=== PATIENT | male | born 1950 | race Caucasian/White ===

== ENCOUNTER 2016-12-30 08:39 | Outpatient (CLI) | payer MEDICARE, MEDICAID ==
[2015-07-28 12:48] VITALS: BP 130/79
== END 2016-12-30 08:40 ==
LOC: POD 08:39
PROVIDERS: ATTEND Podiatrist Public Medicine
DX: E11.9 Type 2 diabetes mellitus without complications (principal); L84 Corns and callosities; L60.0 Ingrowing nail; M79.674 Pain in right toe(s); M79.675 Pain in left toe(s)
CPT/HCPCS: 11721; G0463

== ENCOUNTER 2017-02-18 19:46 | Emergency (ER) | payer MEDICARE, OTHER ==
--- NOTE | 2017-02-18 20:04 | ED Physician Documentation ---
General Adult - HISTORIAN Historian: patient - HPI Stated Complaint: constipation Chief Complaint: General Adult Additional Information: Moving more slowly this am, decreased appetite, abdomen may be a little distended. Did not eat lunch at all. Small bowel movement this afternoon. Walking bent over. 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 Lives in senior living. - ROS CONST: no problems - PAST HX Past History: other (NIDDM, developmental delay) Allergies/Adverse Reactions: Allergies Allergy/AdvReac Type Severity Reaction Status Date / Time No Known Drug Allergies Allergy Unverified 02/18/17 20:45 - SOCIAL HX Smoking History: non-smoker - FAMILY HX Family History: No (no significant) - VITAL SIGNS Vital Signs: Vital Signs Temp Pulse Resp BP Pulse Ox 130/79 08/30/15 11:17 - REVIEWED ASSESSMENTS Nursing Assessment Reviewed: Yes Vitals Reviewed: Yes Progress - Progress Progress: CT abdomen and pelvis without contrast Date of study: February 18, 2017. CLINICAL HISTORY: hx of constipation pt non verbal and unable to give complaints (Hx) / OBSTRUCTION (DICOM Hx) TECHNIQUE: 5 mm contiguous axial images of the abdomen and pelvis non contrast. FINDINGS: The lung bases are clear. Abdomen: The liver and spleen are normal in appearance. The gallbladder is somewhat distended. There is fatty replacement of the head and uncinate process of the pancreas. The kidneys are normal in size and surface contour. There is no evidence of renal or ureteral calculi identified. No hydronephrosis or perinephric stranding is evident. The aorta is normal in caliber. The proximal small bowel is dilated with multiple air-fluid levels. The distal small bowel is nondilated. This may represent ileus or early small bowel obstruction. There is no evidence of free air or free fluid. Pelvis: The colon is generally filled with stool and occasional air fluid levels. The distal ureters and bladder are normal in appearance. There is no evidence of distal ureteral or intravesicular calculi. The appendix is normal. There is no evidence of free air or free fluid. The sigmoid colon and rectum are filled with stool. The remaining pelvic structures are within normal limits and the bones of the pelvis are intact. Multilevel degenerative lumbar spondylosis as noted. There is L3/L4, L4/L5 and L5/S1 disc bulging. IMPRESSION: Dilated proximal small bowel with multiple air-fluid levels that may represent ileus or early small bowel obstruction. Colon Generally filled with stool and occasional colonic air-fluid levels. Somewhat distended gallbladder. Electronically signed on Feb 18, 2017 9:04:27 PM CDT by: Vonda Mcmullen Spoke with Dr. Morse, [facility]. Pt accepted for transfer to ER. ED Results Lab/Radiology - Orders Orders: ED Orders Category Date Time Status Place Saline Lock/IV Now Care 02/18/17 19:[address] ABD & PELVIS W/O CON Stat Exams 02/18/17 Ordered CBC/PLATELET/DIFF Routine Lab 02/18/17 Ordered CMP Routine Lab 02/18/17 Ordered URINALYSIS Routine Lab 02/18/17 Ordered General Adult Physical Exam - PHYSICAL EXAM GENERAL APPEARANCE: Able to say he feels "all right." "No," he doesn't hurt. EENT: eye inspection normal, other (won't open mouth for further exam. Sits with lips parted, tongue slightl;y protruding. ) NECK: supple, other (obese) RESPIRATORY: no resp distress, breath sounds normal CVS: reg rate & rhythm, heart sounds normal ABDOMEN: soft, normal bowel sounds RECTAL: deferred SKIN: warm/dry, normal color EXTREMITIES: non-tender, no evidence of injury NEURO: CN's nml as tested, motor nml, sensation nml Discharge Clincal Impression: Ileus, Small bowel obstruction Condition: Fair Disposition: 02 XFER [id number]-TRM HOSP Decision to Admit: NO Decision Time: 21:38
[2017-02-18 20:48] LABS: eGFR (African) > 60; eGFR (Non-African) > 60
[2017-02-18 20:57] LABS: BASOPHILS % 0.2 (0.0-1.5); EOSINOPHILS % 0.8 % (0.0-6.8); LYMPHOCYTES # 0.5 # k/uL (0.6-4.0); MEAN CORPUSCULAR HEMOGLOBIN 30.5 pg (28.0-34.0); MONOCYTES # 0.4 # k/uL (0.0-0.9); MONOCYTES % 4.4 % (0.0-11.0); NEUTROPHILS # 7.9 # k/uL (1.4-7.7)
[2017-02-18 22:16] VITALS: BP 124/71
--- NOTE | 2017-02-19 10:33 | Diagnostic Imaging Report ---
DAIN LAWTON - MAGO [facility] [id number] [facility] [address] [place], [place]. [address] Report Submission Date: Feb 18, 2017 9:04:27 PM CDT Patient Study Name: NATHAN PHAM Date: Feb 18, 2017 8:39:24 PM CDT Modality Type: CT\SR Gender: M Description: CT ABD & PELVIS W/O CO : 54 Institution: [facility] Physician: DAIN LAWTON - MAGO CT abdomen and pelvis without contrast Date of study: February 18, 2017. CLINICAL HISTORY: hx of constipation pt non verbal and unable to give complaints (Hx) / OBSTRUCTION (DICOM Hx) TECHNIQUE: 5 mm contiguous axial images of the abdomen and pelvis non contrast. FINDINGS: The lung bases are clear. Abdomen: The liver and spleen are normal in appearance. The gallbladder is somewhat distended. There is fatty replacement of the head and uncinate process of the pancreas. The kidneys are normal in size and surface contour. There is no evidence of renal or ureteral calculi identified. No hydronephrosis or perinephric stranding is evident. The aorta is normal in caliber. The proximal small bowel is dilated with multiple air-fluid levels. The distal small bowel is nondilated. This may represent ileus or early small bowel obstruction. There is no evidence of free air or free fluid. Pelvis: The colon is generally filled with stool and occasional air fluid levels. The distal ureters and bladder are normal in appearance. There is no evidence of distal ureteral or intravesicular calculi. The appendix is normal. There is no evidence of free air or free fluid. The sigmoid colon and rectum are filled with stool. The remaining pelvic structures are within normal limits and the bones of the pelvis are intact. Multilevel degenerative lumbar spondylosis as noted. There is L3/L4, L4/L5 and L5/S1 disc bulging. IMPRESSION: Dilated proximal small bowel with multiple air-fluid levels that may represent ileus or early small bowel obstruction. Colon Generally filled with stool and occasional colonic air-fluid levels. Somewhat distended gallbladder. Electronically signed on Feb 18, 2017 9:04:27 PM CDT by: Vonda DREW
== END 2017-02-18 22:00 | disposition short-term general hospital (02) ==
LOC: ED 19:46
DX: K56.69 Other intestinal obstruction (principal)
CPT/HCPCS: 74176; 80053; 82150; 85025; 99283

== ENCOUNTER 2017-05-05 08:38 | Outpatient (CLI) | payer MEDICARE, OTHER | END 2017-05-05 08:40 | LOC: POD 08:38 | PROVIDERS: ATTEND Podiatrist Public Medicine | DX: B35.1 Tinea unguium (principal); E11.9 Type 2 diabetes mellitus without complications; L84 Corns and callosities; L60.0 Ingrowing nail; M79.675 Pain in left toe(s); M79.674 Pain in right toe(s) | CPT/HCPCS: 11721; G0463 ==

== ENCOUNTER 2017-08-04 08:37 | Outpatient (CLI) | payer MEDICARE, OTHER | END 2017-08-04 08:40 | LOC: POD 08:37 | PROVIDERS: ATTEND Podiatrist Public Medicine | DX: B35.1 Tinea unguium (principal); M79.674 Pain in right toe(s); M79.675 Pain in left toe(s); L60.0 Ingrowing nail; E11.9 Type 2 diabetes mellitus without complications; L84 Corns and callosities | CPT/HCPCS: 11721; G0463 ==

== ENCOUNTER 2017-09-29 10:04 | Outpatient (CLI) | payer MEDICARE, OTHER ==
[2017-09-29 10:22] LABS: BASOPHILS % 0.6 (0.0-1.5); EOSINOPHILS % 4.5 % (0.0-6.8); MEAN CORPUSCULAR HEMOGLOBIN 29.8 pg (28.0-34.0); MEAN CORPUSCULAR VOLUME 88.1 fl (80.0-100.0); NEUTROPHILS # 4.5 # k/uL (1.4-7.7)
[2017-09-29 11:02] LABS: eGFR (African) > 60; eGFR (Non-African) > 60
== END 2017-09-29 10:05 ==
LOC: LAB 10:04
PROVIDERS: ATTEND Family Medicine
DX: E11.9 Type 2 diabetes mellitus without complications (principal); I10 Essential (primary) hypertension; E03.9 Hypothyroidism, unspecified
CPT/HCPCS: 36415; 80053; 80061; 84443; 85025

== ENCOUNTER 2017-11-03 08:40 | Outpatient (CLI) | payer MEDICARE, OTHER | END 2017-11-03 09:04 | LOC: POD 08:40 | PROVIDERS: ATTEND Podiatrist Public Medicine | DX: E11.9 Type 2 diabetes mellitus without complications (principal); L84 Corns and callosities; B35.1 Tinea unguium; L60.0 Ingrowing nail; M79.674 Pain in right toe(s); M79.675 Pain in left toe(s) | CPT/HCPCS: 11721; G0463 ==

== ENCOUNTER 2017-12-20 12:45 | Outpatient (CLI) | payer MEDICARE, OTHER | END 2017-12-20 12:46 | LOC: LAB 12:45 | PROVIDERS: ATTEND Family Medicine | DX: E11.9 Type 2 diabetes mellitus without complications (principal) | CPT/HCPCS: 36415; 83036 ==

== ENCOUNTER 2018-03-30 10:28 | Outpatient (CLI) | payer MEDICARE, OTHER | END 2018-03-30 10:30 | LOC: POD 10:28 | PROVIDERS: ATTEND Podiatrist Public Medicine | DX: E11.9 Type 2 diabetes mellitus without complications (principal); L84 Corns and callosities; B35.1 Tinea unguium; L60.0 Ingrowing nail; M79.674 Pain in right toe(s); M79.675 Pain in left toe(s) | CPT/HCPCS: 11721; G0463 ==

== ENCOUNTER 2018-06-29 10:27 | Outpatient (CLI) | payer MEDICARE, OTHER | END 2018-06-29 10:30 | LOC: POD 10:27 | PROVIDERS: ATTEND Podiatrist Public Medicine | DX: E11.9 Type 2 diabetes mellitus without complications (principal); L84 Corns and callosities; B35.1 Tinea unguium; L60.0 Ingrowing nail; M79.674 Pain in right toe(s); M79.675 Pain in left toe(s) | CPT/HCPCS: 11721; G0463 ==

== ENCOUNTER 2019-08-25 15:13 | Outpatient (CLI) | payer MEDICARE, OTHER ==
[2019-09-05 09:56] LABS: eGFR (Non-African) > 60
== END 2019-08-25 15:25 ==
LOC: LAB 15:13
PROVIDERS: ATTEND Nurse Practitioner Family
DX: I10 Essential (primary) hypertension (principal)
CPT/HCPCS: 36415; 80048

== ENCOUNTER 2019-08-28 16:15 | Outpatient (CLI) | payer MEDICARE, OTHER | END 2019-08-28 16:30 | LOC: LAB 16:15 | PROVIDERS: ATTEND Nurse Practitioner Family | DX: Z51.81 Encounter for therapeutic drug level monitoring (principal); C72.20 Malignant neoplasm of unspecified olfactory nerve | CPT/HCPCS: 36415; 80164; 82140 ==

== ENCOUNTER 2019-10-04 11:09 | Outpatient (CLI) | payer MEDICARE, OTHER | END 2019-10-04 11:14 | LOC: LAB 11:09 | PROVIDERS: ATTEND Nurse Practitioner Family | DX: E72.20 Disorder of urea cycle metabolism, unspecified (principal) | CPT/HCPCS: 36415; 82140 ==

== ENCOUNTER 2019-10-18 15:22 | Outpatient (CLI) | payer MEDICARE, OTHER ==
[2019-10-18 15:35] LABS: BASOPHILS % 0.3 % (0.0-1.5); NEUTROPHILS # 3.9 # k/uL (1.4-7.7)
== END 2019-10-18 15:27 ==
LOC: LAB 15:22
PROVIDERS: ATTEND Nurse Practitioner Family
DX: Z51.81 Encounter for therapeutic drug level monitoring (principal); C70.9 Malignant neoplasm of meninges, unspecified
CPT/HCPCS: 36415; 82140; 85025